=== PATIENT | female | born 1975 | race Caucasian/White ===

== ENCOUNTER 2024-06-30 08:47 | Emergency (ER) | payer MEDICARE, MEDICAID ==
[~2024-06-30] VITALS: Ht 175.3 cm; Wt 225.9 kg
[2024-06-30 09:19] VITALS: PULSE 69; PULSE 71; RESP 22; RESP 28; O2SAT 97
[2024-06-30] MEDS: ipratropium/albuterol 3ml nebule NEB ONE (09:19)
[2024-06-30] MEDS: methylPREDNISolone sod succ 125mg/2ml vial IV ONE (09:23)
[2024-06-30 09:34] LABS: BASOPHILS # (AUTO) 0.1 X10'3 (0-0.2); BASOPHILS % (AUTO) 1.4 % (0-1); EOSINOPHILS # (AUTO) 0.1 X10'3 (0-0.9); HEMATOCRIT 46.7 % (35.0-45.0); HEMOGLOBIN 16.5 g/dl (12.0-16.0); LYMPHOCYTES # (AUTO) 1.9 X10'3 (1.1-4.8); LYMPHOCYTES % (AUTO) 35.4 % (21-51); MEAN CORPUSCULAR HEMOGLOBIN 35.6 PG (27.0-31.0); MEAN CORPUSCULAR HGB CONC 35.2 g/dL (33.0-36.5); MEAN PLATELET VOLUME 7.1 FL (7.4-10.4); MONOCYTES # (AUTO) 0.7 X10'3 (0-0.9); MONOCYTES % (AUTO) 12.4 % (2-12); NEUTROPHILS # (AUTO) 2.7 X10'3 (1.8-7.7); NEUTROPHILS % (AUTO) 49.8 % (42-75); PLATELET COUNT 197 X10'3 (140-440); RED BLOOD COUNT 4.62 X10'6 (4.20-5.60); RED CELL DISTRIBUTION WIDTH 14.4 % (11.5-14.5); WHITE BLOOD COUNT 5.4 X10'3 (4.5-11.0)
[2024-06-30 10:03] LABS: ALBUMIN 3.4 G/DL (3.4-5.0); ANION GAP 10 (8-16); BLOOD UREA NITROGEN 14 MG/DL (7-18); BUN/CREATININE RATIO 15.6 (10.0-20.0); CALCIUM 8.7 MG/DL (8.5-10.1); CHLORIDE 102 MMOL/L (99-107); GLUCOSE 102 MG/DL (70-104); POTASSIUM 3.6 MMOL/L (3.5-5.1); PRO BRAIN NATRIURETIC PEPTIDE 63 PG/ML (0-125); SODIUM 137 MMOL/L (135-145); TOTAL CARBON DIOXIDE 24.9 MMOL/L (24-32); eCRCL 82 ML/MIN; eGFR 67 ML/MIN
[2024-06-30] MEDS ORDERED: PRED20TA PO (10:39)
[2024-06-30] MEDS ORDERED: GUAI120015 PO (10:40)
[2024-06-30 10:44] VITALS: TEMP 97.6
[2024-06-30 11:07] VITALS: BP 127/78; PULSE 71; RESP 16; O2SAT 94
== END 2024-06-30 11:09 | disposition home or self-care (01) ==
LOC: ER 08:48
DX: J45.901 Unspecified asthma with (acute) exacerbation (principal); J22 Unspecified acute lower respiratory infection; E03.9 Hypothyroidism, unspecified; G89.29 Other chronic pain; M54.9 Dorsalgia, unspecified; F32.A Depression, unspecified; G43.909 Migraine, unspecified, not intractable, without status migrainosus; F17.200 Nicotine dependence, unspecified, uncomplicated; E66.01 Morbid (severe) obesity due to excess calories; Z95.0 Presence of cardiac pacemaker; Z79.899 Other long term (current) drug therapy; Z88.0 Allergy status to penicillin; Z20.822 Contact with and (suspected) exposure to COVID-19
CPT/HCPCS: 36415; 71045; 80048; 83880; 84484; 85025; 87502; 87503; 87811; 93005; 94640; 96374; 99285; J2919; 94760

== ENCOUNTER 2024-07-20 10:15 | Outpatient (CLI) | payer MEDICARE, MEDICAID ==
[~2024-07-20 10:15] MED LIST: GUAI120015 PO; PRED20TA PO
[2024-07-20 11:01] VITALS: PULSE 94; RESP 18; O2SAT 98
== END 2024-07-20 23:59 | disposition home or self-care (01) ==
LOC: RT 10:15
PROVIDERS: ATTEND Nurse Practitioner Family
DX: R06.02 Shortness of breath (principal)
CPT/HCPCS: 94010; 94760